=== PATIENT | male | born 1970 | race Caucasian/White ===

== ENCOUNTER 2024-03-13 10:46 | Emergency (ER) | payer SELFPAY ==
[2024-03-13] VITALS (7 sets, daily range): BP systolic 134–158; BP diastolic 76–100
--- NOTE | 2024-03-13 10:57 | ED.GENMED ---
History of Present Illness
General
Chief Complaint: Withdrawal Symptoms
Source: patient
Exam Limitations: none
Time Seen by Provider: 03/13/24 10:52
Nursing documentation reviewed up to this point in time: agreed with
History of Present Illness
History of Present Illness:
53 yo male presents to the emergency department c/o withdrawal from fentanyl. He is on methadone, and got his last dose at 8 am. He states he vomited the fentanyl. He typically snorts 6 bags of fentanyl per day.
Past History
Past History
ED Past Medical History: Other (lyme)
ED Past Surgical History: None
Social History
Alcohol: None
Drug: Narcotics
Personal:
Living: with family
Review of Systems
Review of Systems
Allergies reviewed?: Yes
All Other Systems: Not applicable
Constitutional: Reports chills
EENT: Reports no symptoms
Respiratory: Reports no symptoms
Cardiac: Reports no symptoms
ABD/GI: Reports nausea and vomiting
: Reports no symptoms
Musculoskeletal: Reports no symptoms
Skin: Reports no symptoms
Neurological: Reports no symptoms
Endocrine: Reports no symptoms
Hematologic/Lymphatic: Reports no symptoms
Psychiatric: Reports no symptoms
Phy Exam
General Physical Exam
General Presentation: moderate distress
General Skin: warm
General Habitus: normal
General Mental: alert
Pulmonary Exam
Pulmonary Exam: lungs clear and no respiratory distress
Gastrointestinal Exam
Gastrointestinal Exam: normal bowel sounds, soft and non distended
Neurological Exam
Neurological Exam: alert and oriented x3
Course
Orders/Labs/Results
Orders:
Orders
03/13/24 10:57
Cardiac Monitoring- Treatment ONCE
IV Insert/Care/Rem.- Treatment PRN
03/13/24 11:08
Complete Blood Count/With Diff Urgent
Comprehensive Metabolic Panel Urgent
03/13/24 11:20
Trimethobenzamide [Tigan] 200 mg IM NOW STA
03/13/24 11:21
0.9% Sodium Chloride 1000 ml [Nss] 1,000 ml IV BOLUS
03/13/24 12:28
Electrocardiogram (*1) Stat
Reason for Study: QTc Monitoring
Electrocardiogram (*1) Urgent
EKG- Treatment ONCE
03/13/24 12:35
Haloperidol Lactate [Haldol] 1 mg IV NOW STA
03/13/24 13:27
Famotidine [Pepcid] 20 mg IV NOW STA
03/13/24 13:52
Haloperidol Lactate [Haldol] 5 mg .ROUTE .STK-MED ONE
03/13/24 13:53
Haloperidol Lactate [Haldol] 1 mg IV NOW STA
Abnormal Lab Results
03/13/24
11:08
WBC 14.0 H 10^3/uL
(4.8-10.8)
MCH 31.1 H pg
(27.0-31.0)
Abs Immat Gran (auto) 0.1 H 10^3/uL
(0-0.05)
Absolute Neuts (auto) 11.6 H 10^3/uL
(1.4-6.5)
Absolute Monos (auto) 0.7 H 10^3/uL
(0.1-0.6)
Neutrophils % 82.7 H %
(42.2-75.2)
Lymphocytes % 11.3 L %
(20.5-51.1)
Glucose 105 H mg/dl
(70-99)
03/13/24 11:08
03/13/24 11:08
Vital Signs
Initial and Last Documented VS:
Initial Vital Signs
Temp Pulse Resp BP Pulse Ox
98.4 F 65 18 158/100 99
03/13/24 10:47 03/13/24 10:47 03/13/24 10:47 03/13/24 10:47 03/13/24 10:47
Last Documented Vital Signs
Temp Pulse Resp BP Pulse Ox
98.4 F 89 26 139/82 98
03/13/24 10:47 03/13/24 13:45 03/13/24 13:45 03/13/24 12:00 03/13/24 13:00
MDM/Problems Addressed
Differential Diagnosis Includes:
opiate withdrawal, bowel obstruction
MDM/Problems Addressed:
53 yo male with opiate withdrawal, vomiting. Improved after haldol, tigan, iv fluids, pepcid. [facility] arranged admit to rehab, [facility], but cannot admit until Saturday.
*Pulse Oximetry
Patient hypoxic: no
*EKG
Interpreted by ED Provider?: Yes
EKG Intrepretation Date: 03/13/24
EKG Intrepretation Time: 12:34
Interpretation: abnormal
Comparison EKG: no comparison EKG present
Heart Rate: 57
Rate: bradycardiac
Rhythm: sinus
Nelson: normal axis
Interval: normal interval
QRS Pattern: normal QRS
Ischemia: no ischemia
*Critical Care Note
Total Time (30-74mins, 75-104mins- exclusive of procedures): Not Applicable
Patient Management
Social determinants of health affecting care: Substance abuse
Discussion with other providers: Other ([facility])
Escalation/DeEscalation of care consider admission/obs:
admit not indicated
ED Attending Note
-
Portions of this chart may have been created with voice recognition software.� Occasional wrong word or��sound alike� substitutions may have occurred due to the inherent limitations of voice recognition software.
Discharge Plan
Departure
Patient Disposition: Home (Routine Discharge)
Date of Disposition: 03/13/24
Time of Disposition: 13:59
Patient with high blood pressure during this ER visit?: Yes
Condition: Good
Discharge Problem:
Opiate withdrawal
Instructions: Nausea and Vomiting, Adult (DC), Drug Misuse and Addiction (DC)
Prescriptions:
New
clonidine HCl 0.1 mg tablet
0.1 mg PO BID Qty: 10 0RF
famotidine [Pepcid] 40 mg tablet
40 mg PO DAILY Qty: 30 0RF
Referrals:
UNKNOWN - PT DOES,NOT KNOW [Family Provider] -
Interventions
Interventions:
*Risk Screen - Suicide Last Done: 03/13/24 10:53
*General Assessment Last Done: 03/13/24 10:53
*Neglect/Abuse Screening Last Done: 03/13/24 10:53
ED- Fall Risk Assessment Last Done: 03/13/24 10:53
*ED COVID-19 Vaccine History Last Done: 03/13/24 10:53
ED- Neurological Assessment Last Done: 03/13/24 10:53
ED-Psychological Assessment Last Done: 03/13/24 10:53
Discharge Date and Time
Print Language: [place]
[2024-03-13 11:24] LABS: % Basophils 0.6 % (0-2); % Eosinophils 0.1 % (0-6); % Immature Granulocytes 0.4 % (0-0.5); % Lymphocytes 11.3 % (20.5-51.1); % Monocytes 4.9 % (1.7-9.3); % Neutrophils 82.7 % (42.2-75.2); Absolute Basophils 0.1 10^3/uL (0-0.2); Absolute Immature Granulocytes 0.1 10^3/uL (0-0.05); Absolute Lymphocytes 1.6 10^3/uL (1.2-3.4); Absolute Monocytes 0.7 10^3/uL (0.1-0.6); Absolute Neutrophils 11.6 10^3/uL (1.4-6.5); Hematocrit 50.3 % (39.0-52.0); Hemoglobin 17.2 g/dL (13.0-18.0); Mean Corp Hgb Conc. 34.2 g/dL (33.0-37.0); Mean Corpuscular Hgb 31.1 pg (27.0-31.0); Mean Platelet Volume 9.9 fL (7.4-10.4); Nucleated Red Blood Cells % 0 % (-); Platelet Count 376 10^3/uL (130-400); Red Blood Cell Count 5.53 10^6/uL (4.70-6.10); Red Cell Dist. Width 13.3 % (11.5-14.5)
[2024-03-13] MEDS: TIGAN 200 MG IM (11:24)
[2024-03-13] MEDS: NSS 1000 IV (11:27)
[2024-03-13 11:29] LABS: ALT (SGPT) 21 U/L (0-50); AST (SGOT) 25 U/L (17-59); Albumin 4.6 g/dl (3.5-5.0); Alkaline Phosphatase 97 U/L (38-126); Blood Urea Nitrogen 19 mg/dl (9-20); Calcium 9.9 mg/dl (8.4-10.2); Carbon Dioxide 30 mmol/L (22-30); Chloride 101 mmol/L (98-107); Glucose 105 mg/dl (70-99); Potassium 3.9 mmol/L (3.5-5.1); Sodium 142 mmol/L (135-145); Total Bilirubin 1.1 mg/dl (0.2-1.3); Total Protein 7.3 g/dl (6.3-8.2); eGFR > 60.00
[2024-03-13] MEDS: HALDOL 1 MG IV ×2 (12:37→13:53)
[2024-03-13] MEDS: PEPCID 20 MG IV (13:33)
[2024-03-13] MEDS: CATAPRES 0.1 MG PO (14:30)
== END 2024-03-13 15:55 | disposition home or self-care (01) ==
LOC: EMR 10:46
PROVIDERS: EMERGENCY PHYSICIAN Emergency Medicine
DX: F11.23 Opioid dependence with withdrawal (principal); R03.0 Elevated blood-pressure reading, without diagnosis of hypertension
CPT/HCPCS: 99284; 96374; 96361; 96375; 96376; 96372; 80053; 85025; 93005